=== PATIENT | male | born 1970 | race Asian ===

== ENCOUNTER 2018-09-02 05:39 | Inpatient (IN) | payer OTHER ==
[~2018-09-02] VITALS: Ht 363.2 cm; Wt 73.6 kg
[2018-09-02 13:01] VITALS: Ht 363.2 cm; Wt 73.6 kg
[2018-09-02 13:15] VITALS: BP 141/103; PULSE 53; RESP 18
[2018-09-02 13:49] VITALS: PULSE 59
[2018-09-02] MEDS ORDERED: ACETAMINOPHEN 325 MG TAB PO PRN (14:30)
[2018-09-02] MEDS ORDERED: morphine 2 MG INJ IV PRN (14:30)
[2018-09-02] MEDS ORDERED: NACL 0.9% 3 ML SYG IV SCH (14:30)
[2018-09-02] MEDS ORDERED: MAGNESIUM HYDROXIDE 30ML CUP PO PRN (14:30)
[2018-09-02] MEDS ORDERED: ONDANSETRON 4 MG INJ IV PRN (14:30)
[2018-09-02] MEDS ORDERED: LORAZEPAM 2 MG INJ IV PRN (14:30)
[2018-09-02] MEDS ORDERED: hydrALAzine 20 MG INJ IV PRN (14:30)
[2018-09-02] MEDS ORDERED: ALBUTEROL/IPRATROPIUM (NEB) 3 ML AMP HHN PRN (14:30)
[2018-09-02] MEDS ORDERED: NITROGLYCERIN (SL) 0.4 MG TAB SL PRN (14:30)
[2018-09-02] MEDS ORDERED: HYDROCODONE/APAP (5/325) TAB PO PRN (14:30)
[2018-09-02] MEDS ORDERED: DOCUSATE SODIUM 100 MG CAP PO PRN (14:30)
[2018-09-02 15:16] VITALS: BP 147/101; PULSE 63; RESP 18
[2018-09-02] MEDS ORDERED: ENOXAPARIN 80 MG/0.8 ML SYG SC SCH (16:00)
[2018-09-02] MEDS: NICOTINE (14 MG/24 HR) PATCH TRANSDERM SCH (16:00)
[2018-09-02 16:12] VITALS: PULSE 59
--- NOTE | 2018-09-02 16:13 | HP ---
DATE OF ADMISSION: 09/02/2018 This is a 47-year-old male transferred from outside hospital with shortness of breath and elevated tr oponins. HISTORY OF PRESENT ILLNESS: A 47-year-old male with past medical history of hypertension and stroke 10 years ago and positive smoking history, who presented to outside hospital on 08/31/2018. At that time, he had been complaining of shortness of breath for 2 days prior to admission. He was admitted with signs of CHF exacerbation. He had an echocardiogram performed that showed ejection fraction abril und 20%. The patient says he has not had any known prior history of any heart failure. He was start ed on low-dose beta-can there along with Entresto and IV Lasix. The patient's shortness of breat h symptoms improved. However when he had EKG performed over there, there were some questionable find ings of some EKG changes concerning for possible ischemic changes and his first troponin over there w as slightly elevated at 0.079 and so he was transferred over here to be further evaluated by cardiolo gy team and possibly undergo a left heart catheterization. Prior to admission, he had some vomiting symptoms, but presently denies any chest pain or shortness of breath. Denies any lower extremity swe lling or edema. No nausea, vomiting. No fevers or chills. No upper or lower GI bleeding. No diarr hea or constipation. PAST MEDICAL HISTORY: As stated above. ALLERGIES: UNKNOWN AT THIS TIME. SOCIAL HISTORY: A [id number] smoking history. Denies any IV drug abuse or alcohol use. FAMILY HISTORY: Mother has hypertension. Father has hypertension. Denies any history of any stroke or heart attack in his family. HOME MEDICINES: The patient has been taking Plavix since the stroke 10 years ago. The rest of his h ome medicines family will bring in as he does not remember the names of those medicines. PHYSICAL EXAMINATION: VITAL SIGNS: T-max 97.5, pulse 53 to 63, respirations 18, blood pressure 141 systolic over 103 diast olic satting at 100% room air. GENERAL: Shows the patient is lying in bed, answering questions appropriately, in no acute distress. HEENT: Pupils are equal, round, react to light. Extraocular muscles are intact. NECK: Supple. No thyromegaly. LUNGS: Slightly distant breath sounds bilaterally. CARDIOVASCULAR: S1, S2 heard. No rubs or gallops. ABDOMEN: Soft, nontender, nondistended. Normal bowel sounds. No rebound or guarding. MUSCULOSKELETAL: No lower extremity edema bilaterally. NEUROLOGIC: No focal deficits. LABORATORIES: Performed at outside hospital show sodium 136, potassium 3.2, chloride 105, CO2 of 28, BUN 39, creatinine 1.7, glucose 101. WBC 11.6, hemoglobin 13.8, hematocrit 43.0, platelets of 262. Again, first troponin was slightly elevated 0.079. DIAGNOSTIC DATA: We mentioned echocardiogram results. Chest x-ray was performed there on 08/31/2018 showed new mild congestive failure and left basilar densities may represent infiltrate and effusion. CT scan abdomen and pelvis performed over at the outside hospital on 08/31/2018 shows possible ston e within the gallbladder. If indicated, consider ultrasound for further evaluation, appears to be mi ld mesenteric stranding in the right lower quadrant adjacent to the cecum with possible wall thickeni ng of the cecum in this region. Appendix is normal. We cannot exclude colitis, also some edema and stranding within the soft tissues of the flanks bilaterally, right greater than left, of unknown caus e, also some cardiomegaly, trace right pleural effusion and bibasilar, right greater than left atelec tasis, hepatic steatosis. ASSESSMENT AND PLAN: A 47-year-old male transferred from outside hospital after presenting there wit h congestive heart failure exacerbation with signs of possible non-ST elevation myocardial infarction with a prior history of hypertension, smoking history and strokes. 1. Shortness of breath again likely secondary to congestive heart failure as his echocardiogram perf ormed at outside hospital showed ejection fraction of 20%. We will go ahead and repeat an echocardio gram here. Get cardiology consult. Continue him on Lasix and low-dose beta can. Keep the head of the bed elevated at 30 degrees. Monitor ins and outs and daily weights. Check TSH, A1c, lipid pa kevan, get PT consult as well. 2. Elevated troponins again possible signs of non-ST elevation myocardial infarction. Again, we deidre l get a cardiology consult. The patient may benefit from left heart catheterization, but we will dis cuss with cardiology team first. For now, continue aspirin high dose, nitroglycerin p.r.n. and morph ine p.r.n. He is on Lasix, oxygen as needed. Again, we will check a 2D echocardiogram as well. Con mane to trend his troponins. 3. History of hypertension. Again, see above. He will be on p.r.n. medications, blood pressure med icines now and also low-dose beta can. Blood pressure is presently stable. 4. Smoking history. Counseled on smoking cessation. Put him on nicotine patch. 5. History of stroke. Hold his Plavix for now in the possible anticipation he may need a cardiac pr ocedure soon. 6. Gastrointestinal prophylaxis. We will put him on H2 can. 7. Deep venous thrombosis prophylaxis. We will discuss with cardiology to consider giving one dose of Lovenox. Dictated By: FLORINA ALVAREZ/KORI Conf#: [id number] DID#: [id number] CC: MICHAEL RANGEL MD; BRAEDEN AGUIRRE MD;*[facility]*
[2018-09-02 17:18] VITALS: PULSE 64
[2018-09-02] MEDS: FAMOTIDINE 20 MG TAB PO SCH (17:23)
[2018-09-02] MEDS: FUROSEMIDE 20 MG INJ IV SCH (17:23)
[2018-09-02 20:00] VITALS: BP 129/90; PULSE 59; PULSE 68; RESP 18
[2018-09-02] MEDS: SACUBITRIL/VALSARTAN (24mg-26mg) TABLET PO SCH (22:40)
[2018-09-03] VITALS (11 sets, daily range): BP systolic 113–173; BP diastolic 76–126; PULSE 59–90; RESP 18–20
--- NOTE | 2018-09-03 01:24 | CONS ---
DATE OF ADMISSION: 09/02/2018 DATE OF CONSULTATION: 09/02/2018 REASON FOR CONSULTATION: Congestive heart failure, positive troponin. REQUESTING PHYSICIAN: Dr. Kinney from the hospitalist service. HISTORY OF PRESENT ILLNESS: Mr. Serna is a very pleasant 47-year-old male with history of stroke 10 ye ars prior with no residual deficit, hypertension, taking medications, who presented to an outside [facility] with complaints of 2 to 3 days of hypertension, shortness of breath consistent with symptoms of orthopnea as well as episodes of nausea, vomiting, decreased appetite. At outside hospital, the pat [place] was noted to have a minimally positive troponin and underwent a 2D echo revealing a severe depre ssed EF of less than 20%. The patient was placed on medical therapy. Additionally, he underwent a h ead CT revealing no acute intracranial abnormalities. A chest x-ray revealed mild congestive heart f ailure and left basilar densities, concern for possible infiltrate. The patient had labile blood pre ssure from 170s systolic down to 120s. The patient was placed on baseline atenolol with gentle Lasix diuresis and Entresto. The patient has now been transferred to [facility] due to insurance reasons. PAST MEDICAL HISTORY: As above in HPI. MEDICATIONS CURRENTLY IN HOSPITAL: 1. Aspirin 325 daily. 2. Lasix 20 mg IV b.i.d. 3. Carvedilol 3.125 mg p.o. b.i.d. 4. Nicotine patch. 5. Lovenox 70 mg subq x1. 6. Tylenol p.r.n. 7. Milk of magnesia p.r.n. 8. Pepcid p.r.n. ALLERGIES: NO KNOWN DRUG ALLERGIES. SOCIAL HISTORY: Positive tobacco, social EtOH. No illicit drug use. FAMILY HISTORY: No history of sudden cardiac or early CAD. REVIEW OF SYSTEMS: As above in HPI. CONSTITUTIONAL: No fevers, chills. PULMONARY: No current shortness of breath. CARDIOVASCULAR: No current chest pain. GASTROINTESTINAL: No vomiting. GENITOURINARY: No hematuria. MUSCULOSKELETAL: Degenerative joint disease. PSYCHIATRIC: The patient has depression. NEUROLOGIC: No documented history of CVA. PHYSICAL EXAMINATION: VITAL SIGNS: Temperature of 98.6, blood pressure 129/90, pulse 68, respiratory rate 18, sat 97%. GENERAL: The patient is alert, awake, in no acute distress. NECK: JVP approximately 9 cm water. CHEST: Fair air movement throughout. HEART: Regular rate and rhythm. Normal S1, S2. 1/6 systolic murmur, nondisplaced PMI. ABDOMEN: Positive bowel sounds, soft. EXTREMITIES: No significant pitting edema, 1+ pulses bilateral posterior tibial. LABORATORIES: As above in the HPI. No further labs for my review at this time. IMAGING STUDIES: As above. No imaging studies for my review at this time. ECG: No electrocardiograms for my review at this time. IMPRESSION: 1. Congestive heart failure, new onset, systolic, acute on chronic by outside hospital echo. 2. Cardiomyopathy with severely depressed left ventricular ejection fraction less than 20% by [facility] echo. 3. Hypertension, reasonable control. 4. Positive troponin, assess significance in the outside hospital. 5. Episodes of nausea and vomiting. 6. Tobacco dependence. RECOMMENDATIONS: 1. At this time, we would maintain patient on telemetry monitoring to follow rhythm and rates closel y. 2. Continue the patient's aspirin prophylaxis for cardiac stents. 3. Continue the patient's current carvedilol and would resume the patient's Entresto he was taking f rom outside hospital for afterload reduction in the setting of cardiomyopathy. 4. Continue the patient's Lasix diuresis. 5. Continue the patient's aspirin. 6. We will continue to check serial EKGs, assess for significant ongoing changes. 7. We would trend the patient's cardiac enzymes here. 8. We will discuss possible left heart catheterization of this patient versus a cardiac stress test. Thank you for allowing me to take part in the care of this patient. I will continue to follow very c losely with you with further recommendations to be made as the patient progresses through his [facility] clinical course. Dictated By: MICHAEL DOMINIQUE/KORI Conf#: [id number] DID#: [id number] CC: BRAEDEN AGUIRRE MD;*[facility]*
[2018-09-03] MEDS: FUROSEMIDE 20 MG INJ IV SCH ×2 (05:41→17:41)
[2018-09-03] MEDS: NICOTINE (14 MG/24 HR) PATCH TRANSDERM SCH (09:00)
[2018-09-03] MEDS: ASPIRIN (EC) 325 MG TAB PO SCH (09:13)
[2018-09-03] MEDS: FAMOTIDINE 20 MG TAB PO SCH (09:14)
[2018-09-03] MEDS: SACUBITRIL/VALSARTAN (24mg-26mg) TABLET PO SCH ×2 (09:14→20:54)
--- NOTE | 2018-09-03 12:13 | PN ---
Date/Time of Note Date/Time of Note DATE: 09/03/18 TIME: 12:10 Assessment/Plan VTE Prophylaxis Risk score (from Ns)>0 risk: 1 SCD applied (from Ns): No SCD contraindicated: other Pharmacological prophylaxis: LMWH Lines/Catheters IV Catheter Type (from [facility]): [place] Assessment/Plan Hospital Course S: Patient seen by cardiology team yesterday. Patient asking when he can eat. O: VS- see below PHYSICAL EXAMINATION: GENERAL: lying in bed, answering questions, in no acute distress. HEENT: Pupils are equal, round, react to light. Extraocular muscles are intact. NECK: Supple. No thyromegaly. LUNGS: Slightly distant breath sounds bilaterally. CARDIOVASCULAR: S1, S2 heard. No rubs or gallops. ABDOMEN: Soft, nontender, nondistended. Normal bowel sounds. No rebound or guarding. MUSCULOSKELETAL: No lower extremity edema bilaterally. NEUROLOGIC: No focal deficits. ASSESSMENT AND PLAN: 47-year-old male transferred from outside hospital after presenting there with congestive heart failure exacerbation with signs of possible non-ST elevation myocardial infarction with a prior history of hypertension, smoking history and strokes. 1. Shortness of breath again- likely secondary to congestive heart failure as his echocardiogram performed at outside hospital showed ejection fraction of 15- 20%. -Follow-up repeat echocardiogram here, and further cardiology consult recommendations, they are deciding between cardiac stress test versus left heart cath at this point. - Continue Lasix and low-dose beta can. - Keep the head of the bed elevated at 30 degrees. - Monitor ins and outs and daily weights. -Follow-up TSH, A1c, lipid panel, and PT consult as well. 2. Elevated troponins again possible signs of non-ST elevation myocardial infarction. -Again continue to trend and follow-up recommendations from cardiology consult. - continue aspirin high dose, nitroglycerin p.r.n. and morphine p.r.n. - He is on Lasix, oxygen as needed. - Again follow-up 2D echocardiogram as well. - Continue to trend his troponins. 3. History of hypertension-stable - again, see above. He will be on p.r.n. medications, blood pressure medic arden now and also low-dose beta can. 4. Smoking history.- - Counseled on smoking cessation, nicotine patch. 5. History of stroke. -Again, we are holding his Plavix for now in the possible anticipation he may need a cardiac procedure soon. 6. Gastrointestinal prophylaxis- H2 can. 7. Deep venous thrombosis prophylaxis- Lovenox. Result Diagram: 09/03/1815 09/03/1815 Results 24hrs Laboratory Tests Test 09/02/18 14:40 09/02/18 20:58 09/03/18 00:20 09/03/18 06:15 Prothrombin Time 15.5 H Prothrombin Time 1.2 Ratio INR International 1.22 Normalized Ratio Activated 31.8 Partial Thromboplast Time Creatine Kinase 43 38 Creatine Kinase 2.0 2.5 Index Creatinine Kinase MB 0.87 0.94 (Mass) Troponin I 0.052 0.060 0.070 0.089 Free Thyroxine 1.33 White Blood Count 10.3 Red Blood Count 5.48 Hemoglobin 16.7 Hematocrit 49.7 Mean Corpuscular 90.7 Volume Mean Corpuscular 30.5 Hemoglobin Mean Corpuscular 33.6 Hemoglobin Concent Red Cell 13.9 Distribution Width Platelet Count 319 Mean Platelet Volume 10.1 Immature 0.300 Granulocytes % Neutrophils % 59.4 Lymphocytes % 24.3 Monocytes % 8.7 Eosinophils % 6.2 Basophils % 1.1 Nucleated Red Blood 0.0 Cells % Immature 0.030 Granulocytes # Neutrophils # 6.1 Lymphocytes # 2.5 Monocytes # 0.9 Eosinophils # 0.6 H Basophils # 0.1 Nucleated Red Blood 0.0 Cells # Sodium Level 140 Potassium Level 3.3 L Chloride Level 100 Carbon Dioxide Level 33 H Anion Gap 7 Blood Urea Nitrogen 36 H Creatinine 1.39 H Est Glomerular 55 L Filtrat Rate mL/min Glucose Level 123 Hemoglobin A1c 5.8 Calcium Level 9.2 Phosphorus Level 5.2 H Magnesium Level 1.6 L Triglycerides Level 117 Cholesterol Level 183 LDL Cholesterol, 137 Calculated HDL Cholesterol 23 L Cholesterol/HDL 7.9 Ratio Thyroid Stimulating 3.750 Hormone (TSH) Exam/Review of Systems Exam Vitals Vital Signs Date Temp Pulse Resp B/P (MAP) Pulse Ox O2 O2 Flow FiO2 Time Delivery Rate 09/03/18 98.1 88 19 140/93 96 11:11 (109) 09/03/18 Room Air 04:00 Intake and Output 09/02/18 09/02/18 09/03/18 1515:00 23:00 07:00 IntakeIntake Total 350 ml 1600 ml BalanceBalance 350 ml 1600 ml Results Results 24hrs Laboratory Tests Test 09/02/18 14:40 09/02/18 20:58 09/03/18 00:20 09/03/18 06:15 Prothrombin Time 15.5 H Prothrombin Time 1.2 Ratio INR International 1.22 Normalized Ratio Activated 31.8 Partial Thromboplast Time Creatine Kinase 43 38 Creatine Kinase 2.0 2.5 Index Creatinine Kinase MB 0.87 0.94 (Mass) Troponin I 0.052 0.060 0.070 0.089 Free Thyroxine 1.33 White Blood Count 10.3 Red Blood Count 5.48 Hemoglobin 16.7 Hematocrit 49.7 Mean Corpuscular 90.7 Volume Mean Corpuscular 30.5 Hemoglobin Mean Corpuscular 33.6 Hemoglobin Concent Red Cell 13.9 Distribution Width Platelet Count 319 Mean Platelet Volume 10.1 Immature 0.300 Granulocytes % Neutrophils % 59.4 Lymphocytes % 24.3 Monocytes % 8.7 Eosinophils % 6.2 Basophils % 1.1 Nucleated Red Blood 0.0 Cells % Immature 0.030 Granulocytes # Neutrophils # 6.1 Lymphocytes # 2.5 Monocytes # 0.9 Eosinophils # 0.6 H Basophils # 0.1 Nucleated Red Blood 0.0 Cells # Sodium Level 140 Potassium Level 3.3 L Chloride Level 100 Carbon Dioxide Level 33 H Anion Gap 7 Blood Urea Nitrogen 36 H Creatinine 1.39 H Est Glomerular 55 L Filtrat Rate mL/min Glucose Level 123 Hemoglobin A1c 5.8 Calcium Level 9.2 Phosphorus Level 5.2 H Magnesium Level 1.6 L Triglycerides Level 117 Cholesterol Level 183 LDL Cholesterol, 137 Calculated HDL Cholesterol 23 L Cholesterol/HDL 7.9 Ratio Thyroid Stimulating 3.750 Hormone (TSH) Medications Medication Current Medications IV Flush (NS 3 ml) 3 ml PER PROTOCOL IV ; Start 09/02/18 at 14:30 Ondansetron HCl (Zofran Inj) 4 mg Q6H PRN IV NAUSEA/VOMITING; Start 09/02/18 at 14:30 Acetaminophen (Tylenol Tab) 650 mg Q6H PRN PO .PAIN 1-3 OR TEMP; Start 09/02/18 at 14:30 Acetaminophen/ Hydrocodone Bitart ([place] (5/325)) 1 tab Q6H PRN PO .MOD PAIN 4- 6; Start 09/02/18 at 14:30 Morphine Sulfate (morphine) 2 mg Q4H PRN IV .SEVERE PAIN 7-10; Start 09/02/18 at 14:30 Docusate Sodium (Colace) 100 mg Q12H PRN PO .CONSTIPATION; Start 09/02/18 at 14:30 Magnesium Hydroxide (Milk Of Mag) 30 ml DAILY PRN PO .CONSTIPATION; Start 09/02/18 at 14:30 Famotidine (Pepcid) 20 mg DAILY PO Last administered on 09/03/18 09:14; Admin Dose 20 MG; Start 09/02/18 at 14:30 Lorazepam (Ativan) 0.5 mg Q6H PRN IV ANXIETY Last administered on 09/02/18 20:31; Admin Dose 0.5 MG; Start 09/02/18 at 14:30 Albuterol/ Ipratropium (Duoneb) 3 ml Q4H RESP THERAPY PRN HHN SHORTNESS OF BREATH; Start 09/02/18 at 14:30 Hydralazine HCl (Apresoline) 10 mg Q6H PRN IV ELEVATED BLOOD PRESSURE; Start 09/02/18 at 14:30 Nitroglycerin (Nitroglycerin (Sl Tab) 0.4 Mg) 1 tab Q5M PRN SL ANGINA; Start 09/02/18 at 14:30 Aspirin (Ecotrin) 325 mg DAILY PO Last administered on 09/03/18 09:13; Admin Dose 325 MG; Start 09/03/18 at 09:00 Furosemide (Lasix) 20 mg BID DIURETICS IV Last administered on 09/03/18 05:41; Admin Dose 20 MG; Start 09/02/18 at 18:00 Carvedilol (Coreg) 3.125 mg BID PO Last administered on 09/03/18 09:14; Admin Dose 3.125 MG; Start 09/02/18 at 17:00 Nicotine (Nicoderm 14 Mg/ 24hr) 1 patch DAILY TRANSDERM ; Start 09/02/18 at 16:00 Sacubitril/ Valsartan (Entresto 24 Mg-26 Mg) 1 tab BID PO Last administered on 09/03/18 09:14; Admin Dose 1 TAB; Start 09/02/18 at 21:00 FLORINA ALONZO September 03, 2018 12:13
--- NOTE | 2018-09-03 16:11 | CONS ---
Assessment/Plan Assessment/Plan Hospital Course (Demo Recall) IMPRESSION: 1. Congestive heart failure, new onset, systolic, acute on chronic by outside hospital echo. 2. Cardiomyopathy with severely depressed left ventricular ejection fraction less than 20% by outside hospital echo. 3. Hypertension, reasonable control. 4. Positive troponin, assess significance in the outside hospital. 5. Episodes of nausea and vomiting. 6. Tobacco dependence. 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 Will place in for lexiscan and if positive will call team over weekend for C Consultation Date/Type/Reason Admit Date/Time September 02, 2018 at 12:28 Initial Consult Date 09/02/18 Type of Consult Cardiology Reason for Consultation CHF/cardiomyopathy Requesting Provider: FLORINA ALONZO Date/Time of Note DATE: 09/03/18 TIME: 16:04 Exam/Review of Systems Vital Signs Vitals Vital Signs Date Temp Pulse Resp B/P (MAP) Pulse Ox O2 O2 Flow FiO2 Time Delivery Rate 09/03/18 98.1 62 19 134/86 96 15:17 (102) 09/03/18 Room Air 04:00 Intake and Output 09/02/18 09/02/18 09/03/18 1515:00 23:00 07:00 IntakeIntake Total 350 ml 1600 ml BalanceBalance 350 ml 1600 ml Exam Exam Review of Systems: CONSTITUTIONAL: No fevers, chills. PULMONARY: No sob CARDIOVASCULAR: No chest pain/palpitations GASTROINTESTINAL: No nausea/vomiting. GENITOURINARY: No hematuria/dysuria. MUSCULOSKELETAL: No myagias/arthalgias. PSYCHIATRIC: The patient denies depression. NEUROLOGIC: No weakness Constitutional: alert Psych: no complaints Head: normocephalic ENMT: mucosa pink and moist Neck: supple, jvd (9 cm water) Respiratory: diminished breath sounds Cardiovascular: regular rate and rhythm Gastrointestinal: soft, non-tender Musculoskeletal: muscle tone (normal) Extremities: edema Neurological: other (No focal deficits) Labs Result Diagram: 09/03/18 0615 09/03/18 0615 Results 24hrs Laboratory Tests Test 09/02/18 20:58 09/03/18 00:20 09/03/18 06:15 Creatine Kinase 38 Creatine Kinase Index 2.5 Creatinine Kinase MB (Mass) 0.94 Troponin I 0.060 0.070 0.089 White Blood Count 10.3 Red Blood Count 5.48 Hemoglobin 16.7 Hematocrit 49.7 Mean Corpuscular Volume 90.7 Mean Corpuscular Hemoglobin 30.5 Mean Corpuscular Hemoglobin Concent 33.6 Red Cell Distribution Width 13.9 Platelet Count 319 Mean Platelet Volume 10.1 Immature Granulocytes % 0.300 Neutrophils % 59.4 Lymphocytes % 24.3 Monocytes % 8.7 Eosinophils % 6.2 Basophils % 1.1 Nucleated Red Blood Cells % 0.0 Immature Granulocytes # 0.030 Neutrophils # 6.1 Lymphocytes # 2.5 Monocytes # 0.9 Eosinophils # 0.6 H Basophils # 0.1 Nucleated Red Blood Cells # 0.0 Sodium Level 140 Potassium Level 3.3 L Chloride Level 100 Carbon Dioxide Level 33 H Anion Gap 7 Blood Urea Nitrogen 36 H Creatinine 1.39 H Est Glomerular Filtrat Rate mL/min 55 L Glucose Level 123 Hemoglobin A1c 5.8 Calcium Level 9.2 Phosphorus Level 5.2 H Magnesium Level 1.6 L Triglycerides Level 117 Cholesterol Level 183 LDL Cholesterol, Calculated 137 HDL Cholesterol 23 L Cholesterol/HDL Ratio 7.9 Thyroid Stimulating Hormone (TSH) 3.750 Medications Medications Current Medications IV Flush (NS 3 ml) 3 ml PER PROTOCOL IV ; Start 09/02/18 at 14:30 Ondansetron HCl (Zofran Inj) 4 mg Q6H PRN IV NAUSEA/VOMITING; Start 09/02/18 at 14:30 Acetaminophen (Tylenol Tab) 650 mg Q6H PRN PO .PAIN 1-3 OR TEMP; Start 09/02/18 at 14:30 Acetaminophen/ Hydrocodone Bitart ([place] (5/325)) 1 tab Q6H PRN PO .MOD PAIN 4- 6; Start 09/02/18 at 14:30 Morphine Sulfate (morphine) 2 mg Q4H PRN IV .SEVERE PAIN 7-10; Start 09/02/18 at 14:30 Docusate Sodium (Colace) 100 mg Q12H PRN PO .CONSTIPATION; Start 09/02/18 at 14:30 Magnesium Hydroxide (Milk Of Mag) 30 ml DAILY PRN PO .CONSTIPATION; Start 08/12 06/29 at 14:30 Famotidine (Pepcid) 20 mg DAILY PO Last administered on 09/03/18 09:14; Admin Dose 20 MG; Start 09/02/18 at 14:30 Lorazepam (Ativan) 0.5 mg Q6H PRN IV ANXIETY Last administered on 09/02/18 20:31; Admin Dose 0.5 MG; Start 09/02/18 at 14:30 Albuterol/ Ipratropium (Duoneb) 3 ml Q4H RESP THERAPY PRN HHN SHORTNESS OF BREATH; Start 09/02/18 at 14:30 Hydralazine HCl (Apresoline) 10 mg Q6H PRN IV ELEVATED BLOOD PRESSURE; Start 09/02/18 at 14:30 Nitroglycerin (Nitroglycerin (Sl Tab) 0.4 Mg) 1 tab Q5M PRN SL ANGINA; Start 09/02/18 at 14:30 Aspirin (Ecotrin) 325 mg DAILY PO Last administered on 09/03/18 09:13; Admin Dose 325 MG; Start 09/03/18 at 09:00 Furosemide (Lasix) 20 mg BID DIURETICS IV Last administered on 09/03/18at 05:41; Admin Dose 20 MG; Start 09/02/18 at 18:00 Carvedilol (Coreg) 3.125 mg BID PO Last administered on 09/03/18 09:14; Admin Dose 3.125 MG; Start 09/02/18 at 17:00 Nicotine (Nicoderm 14 Mg/ 24hr) 1 patch DAILY TRANSDERM ; Start 09/02/18 at 16:00 Sacubitril/ Valsartan (Entresto 24 Mg-26 Mg) 1 tab BID PO Last administered on 09/03/18 09:14; Admin Dose 1 TAB; Start 09/02/18 at 21:00 MICHAEL RANGEL September 03, 2018 16:11
[2018-09-04] VITALS (12 sets, daily range): BP systolic 100–161; BP diastolic 62–102; PULSE 60–89; RESP 18–20
[2018-09-04] MEDS: FUROSEMIDE 20 MG INJ IV SCH (06:19)
[2018-09-04] MEDS: FAMOTIDINE 20 MG TAB PO SCH (08:08)
[2018-09-04] MEDS: SACUBITRIL/VALSARTAN (24mg-26mg) TABLET PO SCH ×2 (08:08→20:27)
[2018-09-04] MEDS: ASPIRIN (EC) 325 MG TAB PO SCH (08:08)
[2018-09-04] MEDS: NICOTINE (14 MG/24 HR) PATCH TRANSDERM SCH (08:09)
[2018-09-04] MEDS ORDERED: REGADENOSON 0.4 MG/5 ML SYG ONE (11:36)
--- NOTE | 2018-09-04 12:01 | CONS ---
Assessment/Plan Assessment/Plan Hospital Course (Demo Recall) IMPRESSION: 1. Congestive heart failure, new onset, systolic, acute on chronic by outside hospital echo. 2. Cardiomyopathy with severely depressed left ventricular ejection fraction less than 20% by outside hospital echo. 3. Hypertension, reasonable control. 4. Positive troponin, assess significance in the outside hospital. 5. Episodes of nausea and vomiting. 6. Tobacco dependence. 7. REnal failure REcc: -Tele -Continue coreg and entresto afterload reduction -Continue lasix -Continue asa -Continue nicotine patch -Hold lasix and f/u creatnine. may even require some gentle hydration -Lexiscan stres tset today to assess for ischemia causing low EF/positive troponin at OSH Consultation Date/Type/Reason Admit Date/Time September 02, 2018 at 12:28 Initial Consult Date 09/02/18 Type of Consult Cardiology Reason for Consultation cardiomyopathy/positive troponini Requesting Provider: FLORINA ALONZO Date/Time of Note DATE: 09/04/18 TIME: 11:58 Exam/Review of Systems Vital Signs Vitals Vital Signs Date Temp Pulse Resp B/P (MAP) Pulse Ox O2 O2 Flow FiO2 Time Delivery Rate 09/04/18 61 08:00 09/04/18 98.1 19 100/69 96 07:40 (79) 09/03/18 Room Air 04:00 Intake and Output 09/03/18 09/03/18 09/04/18 1515:00 23:00 07:00 IntakeIntake Total 670 ml BalanceBalance 670 ml Exam Exam Review of Systems: CONSTITUTIONAL: No fevers, chills. PULMONARY: No sob CARDIOVASCULAR: No chest pain/palpitations GASTROINTESTINAL: No nausea/vomiting. GENITOURINARY: No hematuria/dysuria. MUSCULOSKELETAL: No myagias/arthalgias. PSYCHIATRIC: The patient denies depression. NEUROLOGIC: No weakness Constitutional: alert Psych: no complaints Head: normocephalic ENMT: mucosa pink and moist Neck: supple, jvd (9 cm water) Respiratory: diminished breath sounds (at bases/B) Cardiovascular: regular rate and rhythm Gastrointestinal: soft, non-tender Musculoskeletal: muscle tone (normal) Extremities: edema (none) Neurological: other (No focal deficits) Labs Result Diagram: 09/04/18 0609 09/04/18 0610 Results 24hrs Laboratory Tests Test 09/04/18 06:09 09/04/18 06:10 White Blood Count 9.8 Red Blood Count 5.64 Hemoglobin 17.2 Hematocrit 51.3 Mean Corpuscular Volume 91.0 Mean Corpuscular Hemoglobin 30.5 Mean Corpuscular Hemoglobin Concent 33.5 Red Cell Distribution Width 13.9 Platelet Count 337 Mean Platelet Volume 9.6 Immature Granulocytes % 0.200 Neutrophils % 62.1 Lymphocytes % 22.1 Monocytes % 9.2 Eosinophils % 5.5 Basophils % 0.9 Nucleated Red Blood Cells % 0.0 Immature Granulocytes # 0.020 Neutrophils # 6.1 Lymphocytes # 2.2 Monocytes # 0.9 Eosinophils # 0.5 Basophils # 0.1 Nucleated Red Blood Cells # 0.0 Sodium Level 140 Potassium Level 3.4 L Chloride Level 101 Carbon Dioxide Level 32 H Anion Gap 7 Blood Urea Nitrogen 43 H Creatinine 1.49 H Est Glomerular Filtrat Rate mL/min 51 L Glucose Level 117 Calcium Level 9.5 Medications Medications Current Medications IV Flush (NS 3 ml) 3 ml PER PROTOCOL IV ; Start 09/02/18 at 14:30 Ondansetron HCl (Zofran Inj) 4 mg Q6H PRN IV NAUSEA/VOMITING; Start 09/02/18 at 14:30 Acetaminophen (Tylenol Tab) 650 mg Q6H PRN PO .PAIN 1-3 OR TEMP; Start 09/02/18 at 14:30 Acetaminophen/ Hydrocodone Bitart ([place] (5/325)) 1 tab Q6H PRN PO .MOD PAIN 4- 6 Last administered on 09/03/18at 20:57; Admin Dose 1 TAB; Start 09/02/18 at 14:30 Morphine Sulfate (morphine) 2 mg Q4H PRN IV .SEVERE PAIN 7-10; Start 09/02/18 at 14:30 Docusate Sodium (Colace) 100 mg Q12H PRN PO .CONSTIPATION; Start 09/02/18 at 14:30 Magnesium Hydroxide (Milk Of Mag) 30 ml DAILY PRN PO .CONSTIPATION; Start 09/02/18 at 14:30 Famotidine (Pepcid) 20 mg DAILY PO Last administered on 09/04/18at 08:08; Admin Dose 20 MG; Start 09/02/18 at 14:30 Lorazepam (Ativan) 0.5 mg Q6H PRN IV ANXIETY Last administered on 09/02/18 20:31; Admin Dose 0.5 MG; Start 09/02/18 at 14:30 Albuterol/ Ipratropium (Duoneb) 3 ml Q4H RESP THERAPY PRN HHN SHORTNESS OF BREATH; Start 09/02/18 at 14:30 Hydralazine HCl (Apresoline) 10 mg Q6H PRN IV ELEVATED BLOOD PRESSURE; Start 09/02/18 at 14:30 Nitroglycerin (Nitroglycerin (Sl Tab) 0.4 Mg) 1 tab Q5M PRN SL ANGINA; Start 09/02/18 at 14:30 Aspirin (Ecotrin) 325 mg DAILY PO Last administered on 09/04/18 08:08; Admin Dose 325 MG; Start 09/03/18 at 09:00 Furosemide (Lasix) 20 mg BID DIURETICS IV Last administered on 09/04/18 06:19; Admin Dose 20 MG; Start 09/02/18 at 18:00 Carvedilol (Coreg) 3.125 mg BID PO Last administered on 09/03/18 20:55; Admin Dose 3.125 MG; Start 09/02/18 at 17:00 Nicotine (Nicoderm 14 Mg/ 24hr) 1 patch DAILY TRANSDERM Last administered on 09/04/18 08:09; Admin Dose 1 PATCH; Start 09/02/18 at 16:00 Sacubitril/ Valsartan (Entresto 24 Mg-26 Mg) 1 tab BID PO Last administered on 09/04/18 08:08; Admin Dose 1 TAB; Start 09/02/18 at 21:00 MICHAEL RANGEL September 04, 2018 12:01
--- NOTE | 2018-09-04 14:05 | PN ---
Date/Time of Note Date/Time of Note DATE: 09/04/18 TIME: 14:02 Assessment/Plan VTE Prophylaxis Risk [place] [facility] [place] risk: 2 SCD applied (from [facility] [place] No SCD contraindicated: other Pharmacological prophylaxis: LMWH Lines/Catheters IV Catheter Type (from [facility]): Saline Lock Urinary Cath still in place: No Assessment/Plan Hospital Course S: Patient had no acute events overnight, just underwent cardiac stress test earlier today. O: VS- see below PHYSICAL EXAMINATION: GENERAL: lying in bed, answering questions, in no acute distress. HEENT: Pupils are equal, round, react to light. Extraocular muscles are intact. NECK: Supple. No thyromegaly. LUNGS: Slightly distant breath sounds bilaterally. CARDIOVASCULAR: S1, S2 heard. No rubs or gallops. ABDOMEN: Soft, nontender, nondistended. Normal bowel sounds. No rebound or guarding. MUSCULOSKELETAL: No lower extremity edema bilaterally. NEUROLOGIC: No focal deficits. Cardiac stress test: IMPRESSION: 1. The type and distribution of the scintigraphic abnormalities are most consistent with a small to moderate size nonreversible perfusion defect in the inferoapical, inferior and inferolateral box. 2. Severe hypokinesis of the left ventricle. 3. The left ventricle ejection fraction at stress is 16%. ASSESSMENT AND PLAN: 47-year-old male transferred from outside hospital after presenting there with congestive heart failure exacerbation with signs of possible non-ST elevation myocardial infarction with a prior history of hypertension, smoking history and strokes. 1. Shortness of breath again- likely secondary to congestive heart failure as his echocardiogram performed at outside hospital showed ejection fraction of 15- 20%. -Based on stress test results, patient may require heart cath will discuss with cardiology team first - Continue Lasix and low-dose beta can. - Keep the head of the bed elevated at 30 degrees. - Monitor ins and outs and daily weights. 2. Elevated troponins again possible signs of non-ST elevation myocardial infarction-again status post cardiac stress test -Again continue to trend and follow-up recommendations from cardiology consult. - continue aspirin high dose, nitroglycerin p.r.n. and morphine p.r.n. - He is on Lasix, oxygen as needed. - Continue to trend his troponins. 3. History of hypertension-stable - again, see above. He will be on p.r.n. medications, blood pressure medicines now and also low-dose beta can. 4. Smoking history.- - Counseled on smoking cessation, nicotine patch. 5. History of stroke. -Again, we are holding his Plavix for now in the possible anticipation he may need a cardiac procedure soon. 6. Gastrointestinal prophylaxis- H2 can. 7. Deep venous thrombosis prophylaxis- Lovenox. Result Diagram: 09/04/18 0609 09/04/18 0610 Results 24hrs Laboratory Tests Test 09/04/18 06:09 09/04/18 06:10 White Blood Count 9.8 Red Blood Count 5.64 Hemoglobin 17.2 Hematocrit 51.3 Mean Corpuscular Volume 91.0 Mean Corpuscular Hemoglobin 30.5 Mean Corpuscular Hemoglobin Concent 33.5 Red Cell Distribution Width 13.9 Platelet Count 337 Mean Platelet Volume 9.6 Immature Granulocytes % 0.200 Neutrophils % 62.1 Lymphocytes % 22.1 Monocytes % 9.2 Eosinophils % 5.5 Basophils % 0.9 Nucleated Red Blood Cells % 0.0 Immature Granulocytes # 0.020 Neutrophils # 6.1 Lymphocytes # 2.2 Monocytes # 0.9 Eosinophils # 0.5 Basophils # 0.1 Nucleated Red Blood Cells # 0.0 Sodium Level 140 Potassium Level 3.4 L Chloride Level 101 Carbon Dioxide Level 32 H Anion Gap 7 Blood Urea Nitrogen 43 H Creatinine 1.49 H Est Glomerular Filtrat Rate mL/min 51 L Glucose Level 117 Calcium Level 9.5 Exam/Review of Systems Exam Vitals Vital Signs Date Temp Pulse Resp B/P (MAP) Pulse Ox O2 O2 Flow FiO2 Time Delivery Rate 09/04/18 98.2 74 19 161/88 97 13:40 (112) 09/03/18 Room Air 04:00 Intake and Output 09/03/18 09/03/18 09/04/18 1515:00 23:00 07:00 IntakeIntake Total 670 ml BalanceBalance 670 ml Results Results 24hrs Laboratory Tests Test 09/04/18 06:09 09/04/18 06:10 White Blood Count 9.8 Red Blood Count 5.64 Hemoglobin 17.2 Hematocrit 51.3 Mean Corpuscular Volume 91.0 Mean Corpuscular Hemoglobin 30.5 Mean Corpuscular Hemoglobin Concent 33.5 Red Cell Distribution Width 13.9 Platelet Count 337 Mean Platelet Volume 9.6 Immature Granulocytes % 0.200 Neutrophils % 62.1 Lymphocytes % 22.1 Monocytes % 9.2 Eosinophils % 5.5 Basophils % 0.9 Nucleated Red Blood Cells % 0.0 Immature Granulocytes # 0.020 Neutrophils # 6.1 Lymphocytes # 2.2 Monocytes # 0.9 Eosinophils # 0.5 Basophils # 0.1 Nucleated Red Blood Cells # 0.0 Sodium Level 140 Potassium Level 3.4 L Chloride Level 101 Carbon Dioxide Level 32 H Anion Gap 7 Blood Urea Nitrogen 43 H Creatinine 1.49 H Est Glomerular Filtrat Rate mL/min 51 L Glucose Level 117 Calcium Level 9.5 Medications Medication Current Medications IV Flush (NS 3 ml) 3 ml PER PROTOCOL IV ; Start 09/02/18 at 14:30 Ondansetron HCl (Zofran Inj) 4 mg Q6H PRN IV NAUSEA/VOMITING; Start 09/02/18 at 14:30 Acetaminophen (Tylenol Tab) 650 mg Q6H PRN PO .PAIN 1-3 OR TEMP; Start 09/02/18 at 14:30 Acetaminophen/ Hydrocodone Bitart ([place] (5/325)) 1 tab Q6H PRN PO .MOD PAIN 4- 6 Last administered on 09/03/18at 20:57; Admin Dose 1 TAB; Start 09/02/18 at 14:30 Morphine Sulfate (morphine) 2 mg Q4H PRN IV .SEVERE PAIN 7-10; Start 09/02/18 at 14:30 Docusate Sodium (Colace) 100 mg Q12H PRN PO .CONSTIPATION; Start 09/02/18 at 14:30 Magnesium Hydroxide (Milk Of Mag) 30 ml DAILY PRN PO .CONSTIPATION; Start 09/02/18 at 14:30 Famotidine (Pepcid) 20 mg DAILY PO Last administered on 09/04/18at 08:08; Admin Dose 20 MG; Start 09/02/18 at 14:30 Lorazepam (Ativan) 0.5 mg Q6H PRN IV ANXIETY Last administered on 09/02/18at 20:31; Admin Dose 0.5 MG; Start 09/02/18 at 14:30 Albuterol/ Ipratropium (Duoneb) 3 ml Q4H RESP THERAPY PRN HHN SHORTNESS OF BREATH; Start 09/02/18 at 14:30 Hydralazine HCl (Apresoline) 10 mg Q6H PRN IV ELEVATED BLOOD PRESSURE; Start 09/02/18 at 14:30 Nitroglycerin (Nitroglycerin (Sl Tab) 0.4 Mg) 1 tab Q5M PRN SL ANGINA; Start 09/02/18 at 14:30 Aspirin (Ecotrin) 325 mg DAILY PO Last administered on 09/04/18 08:08; Admin Dose 325 MG; Start 09/03/18 at 09:00 Furosemide (Lasix) 20 mg BID DIURETICS IV Last administered on 09/04/18at 06:1 9; Admin Dose 20 MG; Start 09/02/18 at 18:00; Status Hold Carvedilol (Coreg) 3.125 mg BID PO Last administered on 09/03/18 20:55; Admin Dose 3.125 MG; Start 09/02/18 at 17:00 Nicotine (Nicoderm 14 Mg/ 24hr) 1 patch DAILY TRANSDERM Last administered on 09/04/18 08:09; Admin Dose 1 PATCH; Start 09/02/18 at 16:00 Sacubitril/ Valsartan (Entresto 24 Mg-26 Mg) 1 tab BID PO Last administered on 09/04/18 08:08; Admin Dose 1 TAB; Start 09/02/18 at 21:00 FLORINA ALONZO September 04, 2018 14:05
--- NOTE | 2018-09-04 19:33 | CARRPT ---
DATE OF PROCEDURE: 09/04/2018 LEXISCAN CARDIOLITE STRESS TEST REASON FOR Stress Testing 1. Cardiomyopathy. 2. Positive troponin assess significance BASELINE VITAL SIGNS AND ELECTROCARDIOGRAM: Pulse 66, blood pressure 127/90. Electrocardiogram revealed normal sinus rhythm, rate of 66, normal axis with inferior Q's and voltage criteria for left ventricular hypertrophy, secondary repolarization abnormalities. PROCEDURE: The patient underwent standard Lexiscan infusion protocol over 10 seconds followed by radiolabeled tracer.. The patient's test stopped at completion of protocol. The patient had a hypotensive response to Lexiscan infusion dropping to 70/51. The patient had mild shortness of breath during stress testing, which resolved in recovery. The patient's test was stopped due to completion of protocol. SYMPTOMS: The patient had complaint shortness breath, no chest pain during stress testing. IMPRESSION: 1. No Lexiscan-induced ST or T-wave changes from baseline abnormalities or diagnostic for ischemia. 2. Rare PVCs during testing. 3. Hypertensive response to Lexiscan infusion. 4. Report of nuclear images to follow in separate dictation. Dictated By: MICHAEL DOMINIQUE/KORI Conf#: [id number] DID#: [id number] SALTY
[2018-09-05] VITALS (9 sets, daily range): BP systolic 118–137; BP diastolic 73–97; PULSE 73–93; RESP 18–20
[2018-09-05] MEDS ORDERED: ZOLPIDEM 5 MG TAB PO PRN (00:25)
[2018-09-05] MEDS: SACUBITRIL/VALSARTAN (24mg-26mg) TABLET PO SCH (08:18)
[2018-09-05] MEDS: FAMOTIDINE 20 MG TAB PO SCH (08:18)
[2018-09-05] MEDS: ASPIRIN (EC) 325 MG TAB PO SCH (08:18)
[2018-09-05] MEDS: NICOTINE (14 MG/24 HR) PATCH TRANSDERM SCH (08:18)
--- NOTE | 2018-09-05 11:37 | PN ---
Date/Time of Note Date/Time of Note DATE: 09/05/18 TIME: 11:36 Assessment/Plan VTE Prophylaxis Risk score (from [facility])>0 risk: 1 SCD applied (from [facility] [place] No SCD contraindicated: other Pharmacological prophylaxis: LMWH Lines/Catheters IV C[facility]ter Type (from [facility] Saline Lock Urinary Cath still in place: No Assessment/Plan Hospital Course S: Patient had no acute events overnight. No current chest pain. Seen by cardiology team yesterday. O: VS- see below PHYSICAL EXAMINATION: GENERAL: lying in bed, answering questions, in no acute distress. HEENT: Pupils are equal, round, react to light. Extraocular muscles are intact. NECK: Supple. No thyromegaly. LUNGS: Slightly distant breath sounds bilaterally. CARDIOVASCULAR: S1, S2 heard. No rubs or gallops. ABDOMEN: Soft, nontender, nondistended. Normal bowel sounds. No rebound or guarding. MUSCULOSKELETAL: No lower extremity edema bilaterally. NEUROLOGIC: No focal deficits. Cardiac stress test: IMPRESSION: 1. The type and distribution of the scintigraphic abnormalities are most consistent with a small to moderate size nonreversible perfusion defect in the inferoapical, inferior and inferolateral box. 2. Severe hypokinesis of the left ventricle. 3. The left ventricle ejection fraction at stress is 16%. ASSESSMENT AND PLAN: 47-year-old male transferred from outside hospital after presenting there with congestive heart failure exacerbation with signs of possible non-ST elevation myocardial infarction with a prior history of hypertension, smoking history and strokes. 1. Shortness of breath again- likely secondary to congestive heart failure as his echocardiogram performed at outside hospital showed ejection fraction of 15- 20%. -Follow-up cardiology recognitions regarding further treatment. Stress test results reviewed. - Continue Lasix and low-dose beta can. - Keep the head of the bed elevated at 30 degrees. - Monitor ins and outs and daily weights. 2. Elevated troponins again possible signs of non-ST elevation myocardial infarction-again status post cardiac stress test yesterday -Again continue to trend and follow-up recommendations from cardiology consult. - continue aspirin high dose, nitroglycerin p.r.n. and morphine p.r.n. - He is on Lasix, oxygen as needed. - Continue to trend his troponins. 3. History of hypertension-stable - again, see above. He will be on p.r.n. medications, blood pressure medicines now and also low-dose beta can. 4. Smoking history.- - Counseled on smoking cessation, nicotine patch. 5. History of stroke. -Again, we are holding his Plavix for now in anticipation of any potential procedures. 6. Gastrointestinal prophylaxis- H2 can. 7. Deep venous thrombosis prophylaxis- Lovenox. Result Diagram: 09/05/18 0607 09/05/18 0607 Results 24hrs Laboratory Tests Test 09/05/18 06:07 White Blood Count 12.2 #H Red Blood Count 5.40 Hemoglobin 16.2 Hematocrit 49.5 Mean Corpuscular Volume 91.7 Mean Corpuscular Hemoglobin 30.0 Mean Corpuscular Hemoglobin Concent 32.7 Red Cell Distribution Width 13.9 Platelet Count 362 Mean Platelet Volume 9.5 Immature Granulocytes % 0.200 Neutrophils % 62.1 Lymphocytes % 19.9 Monocytes % 10.9 Eosinophils % 6.3 Basophils % 0.6 Nucleated Red Blood Cells % 0.0 Immature Granulocytes # 0.020 Neutrophils # 7.6 H Lymphocytes # 2.4 Monocytes # 1.3 H Eosinophils # 0.8 H Basophils # 0.1 Nucleated Red Blood Cells # 0.0 Sodium Level 140 Potassium Level 3.6 Chloride Level 99 Carbon Dioxide Level 36 H Anion Gap 5 Blood Urea Nitrogen 44 H Creatinine 1.46 H Est Glomerular Filtrat Rate mL/min 52 L Glucose Level 107 Calcium Level 8.7 Exam/Review of Systems Exam Vitals Vital Signs Date Temp Pulse Resp B/P (MAP) Pulse Ox O2 O2 Flow FiO2 Time Delivery Rate 09/05/18 98.3 82 20 137/97 97 Room Air 11:18 (110) 09/04/18 21 23:43 Intake and Output 09/04/18 09/04/18 09/05/18 1515:00 23:00 07:00 IntakeIntake Total 600 ml 700 ml 400 ml BalanceBalance 600 ml 700 ml 400 ml Results Results 24hrs Laboratory Tests Test 09/05/18 06:07 White Blood Count 12.2 #H Red Blood Count 5.40 Hemoglobin 16.2 Hematocrit 49.5 Mean Corpuscular Volume 91.7 Mean Corpuscular Hemoglobin 30.0 Mean Corpuscular Hemoglobin Concent 32.7 Red Cell Distribution Width 13.9 Platelet Count 362 Mean Platelet Volume 9.5 Immature Granulocytes % 0.200 Neutrophils % 62.1 Lymphocytes % 19.9 Monocytes % 10.9 Eosinophils % 6.3 Basophils % 0.6 Nucleated Red Blood Cells % 0.0 Immature Granulocytes # 0.020 Neutrophils # 7.6 H Lymphocytes # 2.4 Monocytes # 1.3 H Eosinophils # 0.8 H Basophils # 0.1 Nucleated Red Blood Cells # 0.0 Sodium Level 140 Potassium Level 3.6 Chloride Level 99 Carbon Dioxide Level 36 H Anion Gap 5 Blood Urea Nitrogen 44 H Creatinine 1.46 H Est Glomerular Filtrat Rate mL/min 52 L Glucose Level 107 Calcium Level 8.7 Medications Medication Current Medications IV Flush (NS 3 ml) 3 ml PER PROTOCOL IV ; Start 09/02/18 at 14:30 Ondansetron HCl (Zofran Inj) 4 mg Q6H PRN IV NAUSEA/VOMITING; Start 09/02/18 at 14:30 Acetaminophen (Tylenol Tab) 650 mg Q6H PRN PO .PAIN 1-3 OR TEMP Last administered on 09/05/18at 11:30; Admin Dose 650 MG; Start 09/02/18 at 14:30 Acetaminophen/ Hydrocodone Bitart ([place] (5/325)) 1 tab Q6H PRN PO .MOD PAIN 4- 6 Last administered on 09/03/18at 20:57; Admin Dose 1 TAB; Start 09/02/18 at 14:30 Morphine Sulfate (morphine) 2 mg Q4H PRN IV .SEVERE PAIN 7-10; Start 09/02/18 at 14:30 Docusate Sodium (Colace) 100 mg Q12H PRN PO .CONSTIPATION; Start 09/02/18 at 14:30 Magnesium Hydroxide (Milk Of Mag) 30 ml DAILY PRN PO .CONSTIPATION; Start 09/02/18 at 14:30 Famotidine (Pepcid) 20 mg DAILY PO Last administered on 09/05/18at 08:18; Admin Dose 20 MG; Start 09/02/18 at 14:30 Lorazepam (Ativan) 0.5 mg Q6H PRN IV ANXIETY Last administered on 09/02/18at 20:31; Admin Dose 0.5 MG; Start 09/02/18 at 14:30 Albuterol/ Ipratropium (Duoneb) 3 ml Q4H RESP THERAPY PRN HHN SHORTNESS OF BREATH; Start 09/02/18 at 14:30 Hydralazine HCl (Apresoline) 10 mg Q6H PRN IV ELEVATED BLOOD PRESSURE; Start 09/02/18 at 14:30 Nitroglycerin (Nitroglycerin (Sl Tab) 0.4 Mg) 1 tab Q5M PRN SL ANGINA; Start 09/02/18 at 14:30 Aspirin (Ecotrin) 325 mg DAILY PO Last administered on 09/05/18 08:18; Admin Dose 325 MG; Start 09/03/18 at 09:00 Furosemide (Lasix) 20 mg BID DIURETICS IV Last administered on 09/04/18 06:19; Admin Dose 20 MG; Start 09/02/18 at 18:00; Status Hold Carvedilol (Coreg) 3.125 mg BID PO Last administered on 09/05/18 08:17; Admin Dose 3.125 MG; Start 09/02/18 at 17:00 Nicotine (Nicoderm 14 Mg/ 24hr) 1 patch DAILY TRANSDERM Last administered on 09/05/18at 08:18; Admin Dose 1 PATCH; Start 09/02/18 at 16:00 Sacubitril/ Valsartan (Entresto 24 Mg-26 Mg) 1 tab BID PO Last administered on 09/05/18 08:18; Admin Dose 1 TAB; Start 09/02/18 at 21:00 Zolpidem Tartrate (Ambien) 10 mg HS PRN PO INSOMNIA Last administered on 09/05/18at 00:41; Admin Dose 10 MG; Start 09/05/18 at 00:25 FLORINA ALONZO September 05, 2018 11:37
--- NOTE | 2018-09-05 16:26 | CONS ---
Assessment/Plan Assessment/Plan Hospital Course (Demo Recall) IMPRESSION: 1. Congestive heart failure, new onset, systolic, acute on chronic by outside hospital echo. 2. Cardiomyopathy with severely depressed left ventricular ejection fraction less than 20% by outside hospital echo. Lexiscan with scar but active ischemnia 3. Hypertension, reasonable control. 4. Positive troponin, assess significance in the outside hospital. 5. Episodes of nausea and vomiting. 6. Tobacco dependence. 7. REnal failure-ongoing,. held lasix REcc: -Tele -Continue coreg and entresto afterload reduction -Continue to hold lasix and follow volume status clsoely and creatnine -Continue asa -Continue nicotine patch -Hold lasix and f/u creatnine. may even require some gentle hydration -Will contact lifevest rep Consultation Date/Type/Reason Admit Date/Time September 02, 2018 at 12:28 Initial Consult Date 09/02/18 Type of Consult Cardiology Reason for Consultation cardiomyopathy Requesting Provider: FLORINA ALONZO Date/Time of Note DATE: 09/05/18 TIME: 16:20 Exam/Review of Systems Vital Signs Vitals Vital Signs Date Temp Pulse Resp B/P (MAP) Pulse Ox O2 O2 Flow FiO2 Time Delivery Rate 09/05/18 97.3 73 20 119/73 96 Room Air 15:46 (88) 09/04/18 21 23:43 Intake and Output 09/04/18 09/04/18 09/05/18 1515:00 23:00 07:00 IntakeIntake Total 600 ml 700 ml 400 ml BalanceBalance 600 ml 700 ml 400 ml Exam Exam Review of Systems: CONSTITUTIONAL: No fevers, chills. PULMONARY: No sob CARDIOVASCULAR: No chest pain/palpitations GASTROINTESTINAL: No nausea/vomiting. GENITOURINARY: No hematuria/dysuria. MUSCULOSKELETAL: No myagias/arthalgias. PSYCHIATRIC: The patient denies depression. NEUROLOGIC: No weakness Constitutional: alert Psych: no complaints Head: normocephalic ENMT: mucosa pink and moist Neck: supple, jvd (9 cm water) Respiratory: diminished breath sounds Cardiovascular: regular rate and rhythm Gastrointestinal: soft, non-tender Musculoskeletal: muscle tone Extremities: edema (none) Neurological: other (No focal deficits) Labs Result Diagram: 09/05/18 0609/05/18 06 Results 24hrs Laboratory Tests Test 09/05/18 06:07 White Blood Count 12.2 #H Red Blood Count 5.40 Hemoglobin 16.2 Hematocrit 49.5 Mean Corpuscular Volume 91.7 Mean Corpuscular Hemoglobin 30.0 Mean Corpuscular Hemoglobin Concent 32.7 Red Cell Distribution Width 13.9 Platelet Count 362 Mean Platelet Volume 9.5 Immature Granulocytes % 0.200 Neutrophils % 62.1 Lymphocytes % 19.9 Monocytes % 10.9 Eosinophils % 6.3 Basophils % 0.6 Nucleated Red Blood Cells % 0.0 Immature Granulocytes # 0.020 Neutrophils # 7.6 H Lymphocytes # 2.4 Monocytes # 1.3 H Eosinophils # 0.8 H Basophils # 0.1 Nucleated Red Blood Cells # 0.0 Sodium Level 140 Potassium Level 3.6 Chloride Level 99 Carbon Dioxide Level 36 H Anion Gap 5 Blood Urea Nitrogen 44 H Creatinine 1.46 H Est Glomerular Filtrat Rate mL/min 52 L Glucose Level 107 Calcium Level 8.7 Medications Medications Current Medications IV Flush (NS 3 ml) 3 ml PER PROTOCOL IV ; Start 09/02/18 at 14:30 Ondansetron HCl (Zofran Inj) 4 mg Q6H PRN IV NAUSEA/VOMITING; Start 09/02/18 at 14:30 Acetaminophen (Tylenol Tab) 650 mg Q6H PRN PO .PAIN 1-3 OR TEMP Last adminis tered on 09/05/18at 11:30; Admin Dose 650 MG; Start 09/02/18 at 14:30 Acetaminophen/ Hydrocodone Bitart (Garrison (5/325)) 1 tab Q6H PRN PO .MOD PAIN 4- 6 Last administered on 09/03/18at 20:57; Admin Dose 1 TAB; Start 09/02/18 at 14:30 Morphine Sulfate (morphine) 2 mg Q4H PRN IV .SEVERE PAIN 7-10; Start 09/02/18 at 14:30 Docusate Sodium (Colace) 100 mg Q12H PRN PO .CONSTIPATION; Start 09/02/18 at 14:30 Magnesium Hydroxide (Milk Of Mag) 30 ml DAILY PRN PO .CONSTIPATION; Start 09/02/18 at 14:30 Famotidine (Pepcid) 20 mg DAILY PO Last administered on 09/05/18at 08:18; Admin Dose 20 MG; Start 09/02/18 at 14:30 Lorazepam (Ativan) 0.5 mg Q6H PRN IV ANXIETY Last administered on 09/02/18 20:31; Admin Dose 0.5 MG; Start 09/02/18 at 14:30 Albuterol/ Ipratropium (Duoneb) 3 ml Q4H RESP THERAPY PRN HHN SHORTNESS OF BREATH; Start 09/02/18 at 14:30 Hydralazine HCl (Apresoline) 10 mg Q6H PRN IV ELEVATED BLOOD PRESSURE; Start 09/02/18 at 14:30 Nitroglycerin (Nitroglycerin (Sl Tab) 0.4 Mg) 1 tab Q5M PRN SL ANGINA; Start 09/02/18 at 14:30 Aspirin (Ecotrin) 325 mg DAILY PO Last administered on 09/05/18 08:18; Admin Dose 325 MG; Start 09/03/18 at 09:00 Furosemide (Lasix) 20 mg BID DIURETICS IV Last administered on 09/04/18 06:19; Admin Dose 20 MG; Start 09/02/18 at 18:00; Status Hold Carvedilol (Coreg) 3.125 mg BID PO Last administered on 09/05/18 08:17; Admin Dose 3.125 MG; Start 09/02/18 at 17:00 Nicotine (Nicoderm 14 Mg/ 24hr) 1 patch DAILY TRANSDERM Last administered on 09/05/18 08:18; Admin Dose 1 PATCH; Start 09/02/18 at 16:00 Sacubitril/ Valsartan (Entresto 24 Mg-26 Mg) 1 tab BID PO Last administered on 09/05/18 08:18; Admin Dose 1 TAB; Start 09/02/18 at 21:00 Zolpidem Tartrate (Ambien) 10 mg HS PRN PO INSOMNIA Last administered on 09/05/18 00:41; Admin Dose 10 MG; Start 09/05/18 at 00:25 MICHAEL RANGEL September 05, 2018 16:26
--- NOTE | 2018-09-05 16:28 | PDOCDIS ---
Discharge Instructions CONDITION [id number] Patient Condition: [id number] Stable HOME CARE INSTRUCTIONS: [id number] Diet Instructions: [id number] Low Fat /Cholesterol ACTIVITY: [id number] Activity Restrictions: [id number] Slowly Increase Activity Rest between Activity Avoid heavy lifting FOLLOW UP/APPOINTMENTS Follow-up Plan Please take your medications as prescribed, see your doctor in the clinic in the next 1 to 2 weeks. If you experience any shortness of breath or chest pain before then, go to ER, call 911, call your recording engineer, or go to your primary care doctor. FLORINA ALONZO September 05, 2018 16:28
[2018-09-05] MEDS ORDERED: CARV3.1260 PO (16:33)
[2018-09-05] MEDS ORDERED: Nicotine (14 Mg/24 Hr) TRANSDERM (16:33)
[2018-09-05] MEDS ORDERED: SACU1TAB PO (16:33)
--- NOTE | 2018-09-05 16:41 | DS ---
Date/Time of Note Date/Time of Note DATE: 09/05/18 TIME: 16:35 Discharge Summary Admission/Discharge Info Admit Date/Time September 02, 2018 at 12:28 Discharge Date/Time Discharge Diagnosis 1. Shortness of breath again-improved, likely secondary to congestive heart failure as his echocardiogram performed at outside hospital showed ejection fraction of 15-20%. 2. Elevated troponins-seen at the outside hospital, again possible signs of non-ST elevation myocardial infarction. Troponins drawn at this hospital [facility] were negative, seen by cardiology team 3. History of hypertension-stable 4. Smoking history.-Counseled on smoking cessation, nicotine patch. Patient Condition: Stable Procedures Nuclear cardiac stress test: IMPRESSION: 1. No Lexiscan-induced ST or T-wave changes from baseline abnormalities or diagnostic for ischemia. 2. Rare PVCs during testing. 3. Hypertensive response to Lexiscan infusion. 4. Report of nuclear images to follow in separate dictation. Hx of Present Illness 47-year-old male with past medical history of hypertension and stroke 10 years ago and positive smoking history, who presented to outside hospital on 08/31/2018. At that time, he had been complaining of shortness of breath for 2 days prior to admission. He was admitted with signs of CHF exacerbation. He had an echocardiogram performed that showed ejection fraction around 20%. The patient says he has not had any known prior history of any heart failure. He wa s started on low-dose beta-can there along with Entresto and IV Lasix. The patient's shortness of breath symptoms improved. However when he had EKG performed over there, there were some questionable findings of some EKG changes concerning for possible ischemic changes and his first troponin over there was slightly elevated at 0.079 and so he was transferred over here to be further evaluated by cardiology team and possibly undergo a left heart catheterization. Prior to admission, he had some vomiting symptoms, but presently denies any chest pain or shortness of breath. Denies any lower extremity swelling or edema. No nausea, vomiting. No fevers or chills. No upper or lower GI bleeding. No diarrhea or constipation. Hospital Course Thus this 47-year-old male was transferred from outside hospital after presenting there with congestive heart failure exacerbation with signs of possible non-ST elevation myocardial infarction with a prior history of hypertension, smoking history and strokes, and admitted to telemetry floor. Patient was seen by cardiology team and was ruled out for acute coronary syndrome here. He underwent nuclear cardiac stress test with ejection fraction of 16 % found. Patient will also had some mild renal insufficiency as well, initially was placed on low-dose beta-can and low-dose of IV Lasix. Patient was continued on his Entresto medicine as well. He was able to ambulate, tolerated p.o. diet. Discussion about [employer] was performed between the corrosion control technician and the patient, however they opted for close follow-up of the patient and continued medical management at this time. Patient was also placed on nicotine patch given his history of smoking. After getting clearance from the cardiology team he will be discharged home today in an improved condition. He will follow-up with primary care doctor and cardiology doctor in the clinic in the next 1 week. See below for full list of discharge medications. Patient given strict return precautions in the event he develops any further shortness of breath or chest pain symptoms. Follow-up Plan Please take your medications as prescribed, see your doctor in the clinic in the next 1 to 2 weeks. If you experience any shortness of breath or chest pain before then, go to ER, call 911, call your corrosion control technician, or go to your primary care doctor. Primary Care Provider Not On Staff Doctor Time spent on discharge: > 30 minutes Pending Labs Laboratory Tests Test 09/05/18 06:07 White Blood Count 12.2 10^3/ul (4.8-10.8) Red Blood Count 5.40 10^6/ul (4.70-6.10) Hemoglobin 16.2 g/dl (14.0-18.0) Hematocrit 49.5 % (42.0-52.0) Mean Corpuscular Volume 91.7 fl (82.0-101.0) Mean Corpuscular Hemoglobin 30.0 pg (29.0-33.0) Mean Corpuscular Hemoglobin Concent 32.7 g/dl (32.0-37.0) Red Cell Distribution Width 13.9 % (11.5-14.5) Platelet Count 362 10^3/UL (140-415) Mean Platelet Volume 9.5 fl (7.4-10.4) Immature Granulocytes % 0.200 % (0.001-0.429) Neutrophils % 62.1 % (39.0-77.0) Lymphocytes % 19.9 % (15.0-51.0) Monocytes % 10.9 % (0.0-11.0) Eosinophils % 6.3 % (0.0-7.0) Basophils % 0.6 % (0.0-2.0) Nucleated Red Blood Cells % 0.0 /100WBC (0.0-0.0) Immature Granulocytes # 0.020 10^3/ul (0.0-0.031) Neutrophils # 7.6 10^3/ul (1.6-7.5) Lymphocytes # 2.4 10^3/ul (0.8-2.9) Monocytes # 1.3 10^3/ul (0.3-0.9) Eosinophils # 0.8 10^3/ul (0.0-0.5) Basophils # 0.1 10^3/ul (0.0-0.1) Nucleated Red Blood Cells # 0.0 10^3/ul (0.0-0.0) Sodium Level 140 mmol/L (135-144) Potassium Level 3.6 mmol/L (3.5-5.1) Chloride Level 99 mmol/L (97-110) Carbon Dioxide Level 36 mmol/L (21-31) Anion Gap 5 (5-13) Blood Urea Nitrogen 44 mg/dl (7-20) Creatinine 1.46 mg/dl (0.61-1.24) Est Glomerular Filtrat Rate mL/min 52 mL/min (>60) Glucose Level 107 mg/dl (70-220) Calcium Level 8.7 mg/dl (8.4-10.2) FLORINA ALONZO September 05, 2018 16:41
== END 2018-09-05 19:09 | disposition home or self-care (01) | DRG 293 ==
LOC: TEL 12:28
PROVIDERS: ADMIT Internal Medicine; ATTEND Hospitalist
DX: I11.0 Hypertensive heart disease with heart failure (principal); I50.23 Acute on chronic systolic (congestive) heart failure; R74.8 Abnormal levels of other serum enzymes; I42.9 Cardiomyopathy, unspecified; F17.210 Nicotine dependence, cigarettes, uncomplicated; Z86.73 Personal history of transient ischemic attack (TIA), and cerebral infarction without residual deficits; Z82.49 Family history of ischemic heart disease and other diseases of the circulatory system; Z79.02 Long term (current) use of antithrombotics/antiplatelets
CPT/HCPCS: 78452; 80048; 80061; 82550; 82553; 83036; 83735; 84100; 84439; 84443; 84484; 85025; 85610; 85730; 93017; 97161; A9500; A9505; J1940; J2060; J2785